=== PATIENT | female | born 1995 | race African-American/Black ===

== ENCOUNTER 2018-08-25 11:51 | Emergency (ER) | payer MEDICAID ==
[~2018-08-25] VITALS: Ht 165.1 cm; Wt 111.0 kg
[2018-08-25] MEDS ORDERED: ACETAMINOPHEN 500MG TABLET PO ONE (19:15)
[2018-08-25 19:16] VITALS: BP 117/66
== END 2018-08-25 19:55 | disposition home or self-care (01) ==
LOC: ER 15:05
DX: L02.31 Cutaneous abscess of buttock (principal); R10.2 Pelvic and perineal pain; F17.200 Nicotine dependence, unspecified, uncomplicated; Z90.49 Acquired absence of other specified parts of digestive tract
CPT/HCPCS: 81025; 99282; 99406

== ENCOUNTER 2024-08-19 13:40 | Emergency (ER) | payer MEDICAID ==
[~2024-08-19] VITALS: Ht 170.2 cm; Wt 117.9 kg
[2024-08-19 13:42] VITALS: O2SAT 100
[2024-08-19 14:02] VITALS: BP 125/77; PULSE 90; RESP 18; TEMP 98.3; O2SAT 100
[2024-08-19] MEDS ORDERED: IBUP-2030 MT (15:07)
[2024-08-19] MEDS ORDERED: IBUPROFEN 800MG TABLET PO ONE (15:15)
[2024-08-19] MEDS ORDERED: IBUPROFEN 800MG TABLET PO NR (15:45)
== END 2024-08-19 17:53 | disposition home or self-care (01) ==
LOC: ER 13:55
DX: S83.92XA Sprain of unspecified site of left knee, initial encounter (principal); Z90.49 Acquired absence of other specified parts of digestive tract; Z90.710 Acquired absence of both cervix and uterus; W50.2XXA Accidental twist by another person, initial encounter; Y93.89 Activity, other specified; Y92.89 Other specified places as the place of occurrence of the external cause; Y99.8 Other external cause status
CPT/HCPCS: 73564; 99283; Z7610